=== PATIENT | male | born 1945 | race Two or more races ===

== ENCOUNTER → 2021-05-21 14:19 | Outpatient (CLI) | payer OTHER | END | disposition home or self-care (01) | LOC: LAB 14:19 | PROVIDERS: ATTEND Urology | DX: R97.20 Elevated prostate specific antigen [PSA] (principal) ==

== ENCOUNTER 2021-06-21 08:09 | Outpatient (CLI) | payer OTHER | END 2021-06-21 10:02 | disposition home or self-care (01) | LOC: SONOGRAMA 08:09 | PROVIDERS: ATTEND Urology | DX: C61 Malignant neoplasm of prostate (principal); D29.1 Benign neoplasm of prostate; R97.20 Elevated prostate specific antigen [PSA] ==

== ENCOUNTER 2024-03-06 13:14 | Emergency (ER) | payer OTHER ==
[~2024-03-06] VITALS: Ht 160 cm; Wt 63.5 kg
[2024-03-06] MEDS ORDERED: FINASTERIDE5 MG (14:21)
[2024-03-06] MEDS ORDERED: METFORMIN HCL500 M1 (14:21)
[2024-03-06] MEDS ORDERED: ECOTRIN81 MG (14:21)
[2024-03-06] MEDS ORDERED: ATORVASTATIN CA40 MG (14:22)
[2024-03-06] MEDS ORDERED: VITAMIN D3125 MC1 (14:22)
[2024-03-06] MEDS ORDERED: TAMSULOSIN HCL0.4 MG (14:22)
[2024-03-06] MEDS ORDERED: RIVASTIGMINE3 MG (14:22)
[2024-03-06] MEDS ORDERED: GLIMEPIRIDE2 M1 (14:22)
[2024-03-06] MEDS ORDERED: METFORMIN HCL500 M4 PO (14:22)
[2024-03-06] MEDS ORDERED: BUPROPION XL150 MG (14:24)
[2024-03-06] MEDS ORDERED: MEMANTINE HCL10 MG (14:24)
[2024-03-06 15:26] LABS: HEMATOCRIT 43.4 % (39.0-48.0); HEMOGLOBIN 15.1 g/dL (13-16.00); MEAN CELL VOLUME 94.1 fL (80.0-100.00); MEAN CORPUSCULAR HEMOGLOBIN 32.6 pg (27.00-32.0); MEAN CORPUSCULAR HGB CONC 34.7 g/dl (32.0-36.0); PLATELET COUNT 170 K/uL (150-450); RED BLOOD COUNT 4.62 M/uL (4.00-6.00); RED CELL DISTRIBUTION WIDTH 14.3 % (11.5-14.5)
[2024-03-06 16:02] LABS: PH,URINE 5.5 (5.0-8.0); URINE APPEARANCE Clear; URINE BILIRRUBIN Negative (NEGATIVE); URINE BLOOD Negative; URINE COLOR Yellow; URINE KETONE Negative (NEGATIVE); URINE LEUKOCYTE Negative; URINE NITRATE Negative; URINE PROTEIN Negative (NEGATIVE); URINE UROBILINOGEN 0.2 E.U./dl
[2024-03-06 16:04] LABS: ALBUMIN 3.7 gm/dL (3.4-5.0); BILIRUBIN TOTAL 0.59 mg/dL (0.3-1.2); CALCIUM 9.6 mg/dL (8.5-10.1); CREATININE SERUM 0.79 mg/dL (0.70-1.30); GFR 94.13; GLOBULINA 2.9 G/DL (2.4-3.5); POTASSIUM 4.51 mEq/L (3.5-5.1); TOTAL PROTEIN 6.6 gm/dL (6.4-8.2)
[2024-03-06 16:06] LABS: URINE BACTERIA 8.8 uL (0.0-1933); URINE EPITHELIAL CELLS 4.9 uL (0.0-38.8); URINE RBC 2.2 uL (0.0-20.8); URINE WBC 10.4 uL (0.0-23.2)
[2024-03-06 16:08] LABS: URINE CAST 0.15 uL (0.0-1.40); URINE GLUCOSE 500 MG/DL (NEGATIVE)
[2024-03-06 16:49] LABS: ABG PH 7.467 (7.35-7.45); ABG PO2 97.8 mmHg (80-100); ABG pCO2 35.1 mmHg (35-45); BASE EXCESS 1.5 mmol/l; BICARBONATE 24.8 mmol/l (23-25); Tco2 25.8 mmol/l
[2024-03-06 18:03] LABS: allen test SATISFACTORY; o2 21 %; puncture site RADIAL LEFT
== END 2024-03-06 18:31 | disposition home or self-care (01) ==
LOC: ER 13:15
PROVIDERS: General Practice
DX: R55 Syncope and collapse (principal); R42 Dizziness and giddiness; W18.30XA Fall on same level, unspecified, initial encounter; E11.9 Type 2 diabetes mellitus without complications; Z79.84 Long term (current) use of oral hypoglycemic drugs